=== PATIENT | female | born 1985 | race Caucasian/White ===

== ENCOUNTER 2017-06-01 09:40 | Emergency (ER) | payer OTHER ==
[2017-06-01] MEDS ORDERED: 0.9 % SODIUM CHLORIDE 500 ML IV ONE (09:54)
[2017-06-01 10:15] LABS: BASOPHILS % 0.2 (0.0-1.5); EOSINOPHILS % 1.1 % (0.0-6.8); MEAN CORPUSCULAR HEMOGLOBIN 28.1 pg (28.0-34.0); MEAN CORPUSCULAR VOLUME 85.7 fl (80.0-100.0); MONOCYTES % 1.9 % (0.0-11.0)
[2017-06-01 10:35] LABS: eGFR (African) > 60; eGFR (Non-African) > 60
[2017-06-01 11:09] LABS: APPEARANCE,URINE Cloudy (CLEAR); COLOR,URINE Red (YELLOW); OCCULT BLOOD,URINE 3+ (NEGATIVE); UROBILINOGEN URINE 0.2 Eu (0.2-1.0)
--- NOTE | 2017-06-01 11:51 | ED Physician Documentation ---
General Adult - HISTORIAN Historian: patient, spouse - HPI Stated Complaint: vaginal bleeding Chief Complaint: General Adult Onset: hours Timing: still present Severity: moderate Further Comments: yes (Pt is a 31 yo with 2 misscarriages, one of which is in progress. Pt was evaluated on 04/15/17 and found to have a non-viable . Pt was d/c'd with the expectation that she might pass tisssue and complete the miscarriage on her own. This did not occur and pt was then rx'd Misoprostol to use per vagina, which she used last evening. This am pt had a large amount of vag bleeding and abd cramping. Pt became lightheaded and passed out twice befoe coming to ER. Pt has not had nausea or fever.) - ROS CONST: weakness, other (lightheaded) EYES/ENT: none CVS/RESP: none GI/: abdominal pain (cramping), other (vag bleeding) MS/SKIN/LYMPH: none NEURO/PSYCH: fainting, dizziness - PAST HX Past History: other (previous ) Allergies/Adverse Reactions: Allergies Allergy/AdvReac Type Severity Reaction Status Date / Time No Known Allergies Allergy Verified 06/01/17 10:09 Home Medications: Ambulatory Orders Medication Instructions Recorded NK [NK] 06/01/17 - SOCIAL HX Smoking History: non-smoker - FAMILY HX Family History: No - VITAL SIGNS Vital Signs: Vital Signs Temp Pulse Resp BP Pulse Ox 98.1 F 113 H 16 80/58 99 06/01/17 09:41 06/01/17 09:41 06/01/17 09:41 06/01/17 09:41 06/01/17 09:41 - REVIEWED ASSESSMENTS Nursing Assessment Reviewed: Yes Vitals Reviewed: Yes Progress - Progress Progress: NS 500 cc IVF elevated wbc with 88% neutrophils U/a with 0-2 wbc. Transfer to [facility]. [place], Dr. Sasha Peter. ED Results Lab/Radiology - Lab Results Lab Results: Lab Results 06/01/17 06/01/17 06/01/17 10:55 10:10 10:10 WBC RBC Hgb Hct MCV MCH MCHC RDW Plt Count Neut % (Auto) Lymph % (Auto) Meagher % (Auto) Eos % (Auto) Baso % (Auto) Neut # (Auto) Lymph # (Auto) Meagher # (Auto) Eos # (Auto) Baso # (Auto) Reactive Lymphs % Reactive Lymphs # PT 11.3 Seconds Seconds (9.4-11.6) INR 1.08 (0.9-1.2) APTT 21.8 Seconds L Seconds (24.5-32.8) Sodium 137 mmol/L mmol/L (137-145) Potassium 3.2 mmol/L L mmol/L (3.5-5.1) Chloride 99 mmol/L mmol/L (98-107) Carbon Dioxide 28 mmol/L mmol/L (22-30) BUN 14 mg/dL mg/dL (7-17) Creatinine 0.60 mg/dL mg/dL (0.52-1.04) Est GFR ( Amer) > 60 (60 - ) Est GFR (Non-Af Amer) > 60 (60 - ) Glucose 149 mg/dL H mg/dL (74-106) Calcium 8.8 mg/dL mg/dL (8.4-10.2) Total Bilirubin 0.5 mg/dL mg/dL (0.2-1.3) AST 19 U/L U/L (15-46) ALT 25 U/L U/L (13-69) Alkaline Phosphatase 62 U/L U/L (38-126) Total Protein 6.9 g/dL g/dL (6.3-8.2) Albumin 3.8 g/dL g/dL (3.5-5.0) Urine Color Red (YELLOW) Urine Appearance Cloudy (CLEAR) Urine pH 6.0 (5.0 - 8.0) Ur Specific [place] >=1.030 H (1.010-1.030) Urine Protein 3+ mg/dL H mg/dL (NEGATIVE) Urine Ketones Negative mg/dL mg/dL (NEGATIVE) Urine Occult Blood 3+ H (NEGATIVE) Urine Nitrite Negative (NEGATIVE) Urine Bilirubin 1+ H (NEGATIVE) Urine Urobilinogen 0.2 Eu Eu (0.2-1.0) Ur Leukocyte Esterase Negative (NEGATIVE) Urine RBC >100 H (0-2 HPF) Urine WBC 0-2 (0-5 HPF) Urine Bacteria Few H (NEGATIVE) Urine Glucose Negative mg/dL mg/dL (NEGATIVE) 06/01/17 10:10 WBC 14.70 K/ul H K/ul (4.00-12.00) RBC 4.18 M/ul M/ul (3.90-5.20) Hgb 11.7 g/dL L g/dL (12.0-16.0) Hct 35.8 % % (34.5-46.5) MCV 85.7 fl fl (80.0-100.0) MCH 28.1 pg pg (28.0-34.0) MCHC 32.8 g/dL g/dL (30.0-36.0) RDW 13.7 % % (11.3-14.3) Plt Count 239 K/mm3 K/mm3 (130-400) Neut % (Auto) 88.7 % H % (39.0-79.0) Lymph % (Auto) 7.8 % L % (16.0-50.0) Meagher % (Auto) 1.9 % % (0.0-11.0) Eos % (Auto) 1.1 % % (0.0-6.8) Baso % (Auto) 0.2 (0.0-1.5) Neut # (Auto) 13.0 # k/uL H # k/uL (1.4-7.7) Lymph # (Auto) 1.2 # k/uL # k/uL (0.6-4.0) Meagher # (Auto) 0.3 # k/uL # k/uL (0.0-0.9) Eos # (Auto) 0.2 # k/uL # k/uL (0.0-0.6) Baso # (Auto) 0.0 # k/uL # k/uL (0.0-0.5) Reactive Lymphs % 0.2 % % (0.0-5.0) Reactive Lymphs # 0.0 # k/uL # k/uL (0.0-0.8) PT INR APTT Sodium Potassium Chloride Carbon Dioxide BUN Creatinine Est GFR ( Amer) Est GFR (Non-Af Amer) Glucose Calcium Total Bilirubin AST ALT Alkaline Phosphatase Total Protein Albumin Urine Color Urine Appearance Urine pH Ur Specific [place] Urine Protein Urine Ketones Urine Occult Blood Urine Nitrite Urine Bilirubin Urine Urobilinogen Ur Leukocyte Esterase Urine RBC Urine WBC Urine Bacteria Urine Glucose - Orders Orders: ED Orders Category Date Time Status Place IV Lock 1T Care 06/01/17 09:55 Active ABO/RH TYPE Stat Lab 06/01/17 Ordered CBC/PLATELET/DIFF Routine Lab 06/01/17 10:10 Completed CMP Routine Lab 06/01/17 10:10 Completed HCG QUANTITATIVE Routine Lab 06/01/17 10:10 Received PT-INR Routine Lab 06/01/17 10:10 Completed PTT Routine Lab 06/01/17 10:10 Completed UA [URINALYSIS] Routine Lab 06/01/17 10:55 Completed 0.9 % Sodium Chloride [Normal Saline] 500 ml Med 06/01/17 09:54 Discontinued IV NOW General Adult Physical Exam - PHYSICAL EXAM GENERAL APPEARANCE: mild distress EENT: pharynx normal NECK: normal inspection, supple RESPIRATORY: no resp distress, chest non-tender, breath sounds normal CVS: reg rate & rhythm, heart sounds normal ABDOMEN: soft, no organomegaly, normal bowel sounds, tenderness (moderate mid and lower abd tenderness), other (Pelvic exam, moderate amount of blood and clots per vag) BACK: normal inspection, no CVA tenderness SKIN: warm/dry, normal color EXTREMITIES: non-tender, normal range of motion, no evidence of injury NEURO: oriented X3, motor nml, sensation nml Discharge Clincal Impression: vaginal bleeding, miscarriage Referrals: Primary Doctor,No [Primary Care Provider] - Condition: Fair Disposition: 02 XFER SHT-TRM HOSP Decision to Admit: NO Decision Time: 11:57
[2017-06-01 12:20] VITALS: BP 110/58
== END 2017-06-01 12:10 | disposition short-term general hospital (02) ==
LOC: ED 09:40
DX: O03.1 Delayed or excessive hemorrhage following incomplete spontaneous abortion (principal); O03.30 Unspecified complication following incomplete spontaneous abortion
CPT/HCPCS: 80053; 81002; 84702; 85025; 85610; 85730; J7060; 86900; 86901; 96360; 99284; S1016

== ENCOUNTER 2017-06-01 12:26 | Emergency (ER) | payer OTHER ==
[2017-06-01] MEDS ORDERED: 0.9 % SODIUM CHLORIDE 1,000 ML IV ONE ×2 (12:30→12:52)
--- NOTE | 2017-06-01 12:50 | ED Physician Documentation ---
General Adult - HISTORIAN Historian: patient - HPI Stated Complaint: syncopal episode Chief Complaint: General Adult Onset: minutes Timing: still present Severity: mild Further Comments: yes (Pt is a 31 yo female seen here minutes ago for vag bleeding and miscarriage. Pt was to transfer to [facility] by private vehicle, but had a syncopal episode in the parking lot. Pt slipped out of the van that she was going to travel in and sustained small abrasions to R elbow, thigh, and forehead. Pt was A&O shortly after the episode. See earlier chart for details re: vag bleeding/miscarriage.) - ROS CONST: weakness, other (lightheadedness) EYES/ENT: none CVS/RESP: none GI/: none MS/SKIN/LYMPH: other (minor abrasions, R elbow, forehead, thigh) NEURO/PSYCH: dizziness - PAST HX Past History: other (miscarriage) Allergies/Adverse Reactions: Allergies Allergy/AdvReac Type Severity Reaction Status Date / Time No Known Allergies Allergy Verified 06/01/17 12:44 Home Medications: Ambulatory Orders Medication Instructions Recorded Misoprostol [Cytotec] 800 mcg VG 1T 06/01/17 NK [NK] 06/01/17 - SOCIAL HX Smoking History: non-smoker - FAMILY HX Family History: No - VITAL SIGNS Vital Signs: Vital Signs Temp Pulse Resp BP Pulse Ox 98.4 F 117 H 15 104/60 97 06/01/17 12:27 06/01/17 12:27 06/01/17 12:27 06/01/17 12:27 06/01/17 12:27 - REVIEWED ASSESSMENTS Nursing Assessment Reviewed: Yes Vitals Reviewed: Yes Progress - Progress Progress: NS 1 L IVF KCl 40 mEq po, pt could not tolerate the taste of KCL and did not take it. Transfer to [facility] Dr. Sasha Peter. ED Results Lab/Radiology - Orders Orders: ED Orders Category Date Time Status 0.9 % Sodium Chloride [Normal Saline] 1,000 ml Med 06/01/17 12:30 Discontinued IV .STK-MED General Adult Physical Exam - PHYSICAL EXAM GENERAL APPEARANCE: mild distress EENT: eye inspection normal, ENT inspection normal, pharynx normal NECK: normal inspection, supple RESPIRATORY: no resp distress, chest non-tender, breath sounds normal CVS: reg rate & rhythm, heart sounds normal ABDOMEN: soft, normal bowel sounds, tenderness (mid and lower abd tenderness) BACK: normal inspection, no CVA tenderness SKIN: other (superficial abrasions R elbow, thigh, forehead) EXTREMITIES: non-tender, normal range of motion NEURO: oriented X3, CN's nml as tested, motor nml, sensation nml, mood/affect nml Discharge Clincal Impression: vaginal bleeding, miscarriage, syncope Referrals: Primary Doctor,No [Primary Care Provider] - Condition: Stable Disposition: 02 XFER SHT-TRM HOSP Decision to Admit: NO Decision Time: 13:11
[2017-06-01] MEDS ORDERED: DIPH,PERTUSS(ACELL),TET VAC/PF 0.5 ML DISP.SYRIN IM ONE (12:53)
[2017-06-01] MEDS ORDERED: POTASSIUM CHLORIDE 20 MEQ TABLET.ER PO ONE (12:54)
[2017-06-01 13:34] VITALS: BP 107/68
== END 2017-06-01 13:32 | disposition short-term general hospital (02) ==
LOC: ED 12:26
DX: O03.9 Complete or unspecified spontaneous abortion without complication (principal); R55 Syncope and collapse; O03.6 Delayed or excessive hemorrhage following complete or unspecified spontaneous abortion
CPT/HCPCS: 90715; J7030; 90471; 96360; 99284; S1016